=== PATIENT | male | born 1945 | race Asian ===

== ENCOUNTER 2017-05-11 10:14 | Emergency (ER) | payer BC, OTHER ==
[2017-05-11 10:20] VITALS: TEMP 98.5; BMI 27.9
[2017-05-11] MEDS ORDERED: methylPREDNISolone NA SUCC 125 MG/2 ML VIAL IVPB ONE (10:38)
[2017-05-11] MEDS ORDERED: ALBUTEROL SO4 2.5/IPRATROPIUM 0.5 INH SOL 3 ML VIAL.NEB. NEB ONE ×2 (10:38→10:52)
[2017-05-11 10:55] LABS: BASOPHIL 0.7 % (0-2.0); EOSINOPHIL 6.8 % (0-4.5); MCH 30.4 pg (25.7-33.7); MCHC 33.7 g/dl (32.0-35.9); MEAN CELL VOLUME 90.1 fl (80-96); MEAN PLT VOLUME 7.2 fl (7.5-11.1); NEUTROPHILS 41.7 % (42.8-82.8); PLATELET COUNT 216 K/MM3 (134-434); WHITE BLOOD COUNT 7.7 K/mm3 (4.0-10.0)
--- NOTE | 2017-05-11 11:05 | PDOC ---
History of Present Illness - General Chief Complaint: Shortness of Breath Stated Complaint: SOB Time Seen by Provider: 05/11/17 10:24 History Source: Patient Exam Limitations: No Limitations - History of Present Illness Initial Comments: 05/11/17 10:54 71-year-old male brought in by daughter for evaluation of cough, wheezing, and mild lower extremity swelling. Patient symptoms began about a week ago and now have progressively worsened causing him increasing coughing and sputum. Patient denies fever presently, chest pain, abdominal pain, nausea, weakness, headache, or dizziness. Patient does have history of hypertension and dyslipidemia. Patient is followed by Dr. Villar was not seen him since onset of symptoms. Patient does state a [address] trip to [place] a few days prior but states symptoms began prior to travel. Patient denies smoking history, recent sick contacts, recent change in medication, recent change in weight, or recent illness. Timing/Duration: reports: getting worse Severity: reports: moderate Possible Cause: Yes: no prior episodes Associated Symptoms: reports: cough, sore throat, wheezing Past History - Past Medical History Allergies/Adverse Reactions: Allergies Allergy/AdvReac Type Severity Reaction Status Date / Time No Known Allergies Allergy Unverified 05/11/17 10:16 Home Medications: Ambulatory Orders Losartan Potassium [Cozaar -] 25 mg PO DAILY 05/11/17 Metoprolol Succinate [Toprol Xl -] 25 mg PO DAILY 05/11/17 HTN: Yes Hypercholesterolemia: Yes - Psycho/Social/Smoking Cessation Hx Anxiety: No Suicidal Ideation: No Smoking Status: No Smoking History: Never smoked Have you smoked in the past 12 months: No Number of Cigarettes Smoked Daily: 0 Cigars Per Day: 0 Information on smoking cessation initiated: No Hx Alcohol Use: No Drug/Substance Use Hx: No Substance Use Type: None Patient Lives Alone: No Lives with/in: spouse/SO Review of Systems - Review of Systems Able to Perform ROS?: Yes Constitutional: No: Symptoms Reported HEENTM: Yes: Throat Pain. No: Throat Swelling, Difficulty Swallowing Respiratory: Yes: Cough, Wheezing, Productive cough Cardiac (ROS): Yes: Edema (lower extremity) ABD/GI: No: Symptoms Reported : No: Symptoms Reported Musculoskeletal: No: Symptoms Reported Neurological: No: Symptoms reported Endocrine: No: Symptoms Reported Hematologic/Lymphatic: No: Symptoms Reported *Physical Exam - Vital Signs Last Vital Signs Temp Pulse Resp BP Pulse Ox 98.5 F 83 18 149/91 100 05/11/17 10:18 05/11/17 10:18 05/11/17 10:18 05/11/17 10:18 05/11/17 10:18 - Physical Exam General Appearance: Yes: Nourished, Appropriately Dressed. No: Apparent Distress HEENT: positive: EOMI, VITALIY, Pharynx Normal. negative: Pale Conjunctivae Neck: positive: Supple Respiratory/Chest: positive: Decreased Breath Sounds (left lower base), Rhonchi ( left lower base), Wheezing (expiratory right lower base). negative: Labored Respiration, Rapid RR, Crackles Cardiovascular: positive: Regular Rhythm, Regular Rate. negative: Murmur Gastrointestinal/Abdominal: positive: Normal Bowel Sounds, Soft, Distended Extremity: positive: Normal Capillary Refill, Pedal Edema (1+pitting bilateral) Integumentary: positive: Normal Color, Warm, Moist Neurologic: positive: Motor Strength 5/5 (ambulatory) ED Treatment Course - LABORATORY CBC & Chemistry Diagram: 05/11/17 10:41 05/11/17 10:41 - RADIOLOGY Radiology Studies Ordered: Category Date Time Status CHEST PA & LAT [RAD] Stat Radiology 05/11/17 10:38 Ordered Medical Decision Making - Medical Decision Making 05/11/17 10:58 Patient brought in for evaluation of worsening cough wheezing and sore throat. Patient with history of dyslipidemia and hypertension. Patient on exam had expiratory wheeze to the right lower base and decreased breath sounds the left lower base. As closed patient also did travel from [place] 3 weeks ago. Patient concerning for pneumonia, CHF, bronchitis, or PE. Patient ordered for EKG, chest x-ray, labs including cardiac profile, BNP, and a d-dimer. Patient also ordered for Solu-Medrol and DuoNeb 05/11/17 12:10 Laboratory Tests 05/11/17 05/11/17 05/11/17 10:41 10:41 11:00 WBC 7.7 Hgb 13.9 Hct 41.2 Plt Count 216 Neutrophils % 41.7 L D-Dimer Pending Sodium 138 Potassium 4.1 Chloride 104 Carbon Dioxide 25 Anion Gap 9 BUN 12 Creatinine 1.0 Random Glucose 97 Calcium 8.6 Total Bilirubin 0.3 AST 30 ALT 49 Alkaline Phosphatase 98 Creatine Kinase 324 H CK-MB (CK-2) 2.828 Troponin I < 0.02 B-Natriuretic Peptide 139.89 H 05/11/17 12:11 Chest x-ray negative for acute findings. D-dimer pending. Patient states feeling better after receiving the medication. If d-dimer is negative the plan is to discharge home with albuterol inhaler and azithromycin. 05/11/17 12:42 Laboratory Tests 05/11/17 05/11/17 11:00 12:20 D-Dimer 259 H POC VBG pO2 57.5 H Pt ordered for chest CTA 05/11/17 14:59 CTA shows masslike consolidation within the right lower lobe which may represent an acute pneumonia. A poorly defined mass cannot be excluded. Clinical correlation follow-up is recommended. Patient states feeling much better. Reexam no wheezing. Patient be discharged home with azithromycin and inhaler. I 05/11/17 15:04 *DC/Admit/Observation/Transfer Diagnosis at time of Disposition: Acute wheezy bronchitis Pneumonia Qualifiers: Pneumonia type: due to unspecified organism Laterality: right Lung location: lower lobe of lung Qualified Code(s): J18.1 - Lobar pneumonia, unspecified organism - Discharge Dispostion Disposition: HOME Condition at time of disposition: Improved - Referrals Referrals: Rachel Villar MD [Primary Care Provider] - - Patient Instructions Printed Discharge Instructions: DI for Acute Bronchitis Additional Instructions: Please take antibiotics until completed. Please use your inhaler as needed for coughing and wheezing. If no improvement over the next 3-4 days please contact your primary care physician Dr. Villar.
[2017-05-11 11:22] LABS: ALBUMIN 3.4 g/dl (3.4-5.0); ANION GAP 9 (8-16); BILIRUBIN,TOTAL 0.3 mg/dL (0.2-1.0); CALCIUM 8.6 mg/dL (8.5-10.1); CO2 25 mmol/L (21-32); GLUCOSE,RANDOM 97 mg/dL (74-106); SGOT/AST 30 U/L (15-37); SGPT/ALT 49 U/L (12-78); TOT PROT 7.5 g/dl (6.4-8.2)
[2017-05-11 11:24] LABS: ALK PHOS 98 U/L (45-117); TROPONIN I < 0.02 ng/ml (0.00-0.05)
[2017-05-11 12:36] LABS: VENOUS PH 7.38 (7.32-7.42)
[2017-05-11 12:37] LABS: VENOUS BLOOD GAS HCO3 22.2 meq/L (19-25)
[2017-05-11] MEDS ORDERED: SODIUM CHLORIDE 500 ML IV STA (12:44)
[2017-05-11 15:19] VITALS: BP 145/89; PULSE 90
--- NOTE | 2017-05-12 10:41 | EKG ---
Test Reason : Blood Pressure : / mmHG Vent. 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
== END 2017-05-11 15:19 | disposition home or self-care (01) ==
LOC: JER 10:14
PROC: 3E0F7GC Introduction of Other Therapeutic Substance into Respiratory Tract, Via Natural or Artificial Opening (ICD-10-PCS; principal; 2017-05-11)
PROC: 3E0337Z Introduction of Electrolytic and Water Balance Substance into Peripheral Vein, Percutaneous Approach (ICD-10-PCS; 2017-05-11)
PROC: 3E0333Z Introduction of Anti-inflammatory into Peripheral Vein, Percutaneous Approach (ICD-10-PCS; 2017-05-11)
DX: J20.9 Acute bronchitis, unspecified (principal); J18.1 Lobar pneumonia, unspecified organism
CPT/HCPCS: 36415; 71020-TC; 71275-TC; 80053; 82550; 82553; 82803; 83880; 84484; 85025; 85379; 93005; 93010; 94640; 96361; 96374; 99282-25

== ENCOUNTER 2020-08-14 15:05 | Emergency (ER) | payer OTHER ==
--- OUTSIDE RECORDS SUMMARY | 2020-08-14 15:08 | XMS ---
:1945 Author Organization [facility] Support Name Relationship Address Phone RE Unavailable Unavailable Unavailable TAYLOR DAUGHTER [address] [place] [address] [address] [place] [address] Re-disclosure Warning The records that you are about to access may contain information from federally- assisted alcohol or drug abuse programs. If such information is present, then the following federally mandated warning applies: This information has been disclosed to you from records protected by federal confidentiality rules (42 CFR part 2). The federal rules prohibit you from making any further disclosure of this information unless further disclosure is expressly permitted by the written consent of the person to whom it pertains or as otherwise permitted by 42 CFR part 2. A general authorization for the release of medical or other information is NOT sufficient for this purpose. The Federal rules restrict any use of the information to criminally investigate or prosecute any alcohol or drug abuse patient.The records that you are about to access may contain highly sensitive health information, the redisclosure of which is protected by Article 27-F of the [facility] Public Health law. If you continue you may haveaccess to information: Regarding HIV / AIDS; Provided by facilities licensed or operated by the [facility] Office of Mental Health; or Provided by the [facility] Office for People With Developmental Disabilities. If such information is present, then the following [facility] mandated warning applies: This information has been disclosed to you from confidential records which are protected by state law. State law prohibits you from making any further disclosure of this information without the specific written consent of the person to whom it pertains, or as otherwise permitted by law. Any unauthorized further disclosure in violation of state law may result in a fine or custodial sentence or both. A general authorization for the release of medical or other information is NOT sufficient authorization for further disclosure. Insurance Providers Payer name Policy type Policy ID Covered Covered green party's Policy P edmar / Coverage green party ID relationship to [employer] ormation type huizar [employer] PPO [id number] SP [id number] 2 MEDICARE [id number] SP [id number] 13 3 Results ID Date Data Source [id number] 08/11/2020 10:41:00 AM EDT [facility] Received: 08/11/2020 at 06:15:00 QTE : [facility], [address], [place], [address], Petey Gray MD Received: 08/11/2020 at 06:15:00 QTE : [facility], [address], [place], [address], Petey Gray MD Received: 08/11/2020 at 06:15:00 QTE : [facility], [address], [place], [address], Petey Gray MD Received: 08/11/2020 at 06:15:00 QTE : [facility], [address], [place], [address], Petey Gray MD Received: 08/11/2020 at 06:15:00 QTE : [facility], [address], [place], [address], Petey Gray MD Received: 08/11/2020 at 06:15:00 QTE : [facility], [address], [place], [address], Petey Gray MD Name Value Range Interpretation Description Data Sup porting Code Source(s) Document(s ) Cholesterol 208 <200 Above high [facility] [Mass/volume] mg/dL normal Diagnostics in Serum or Plasma Cholesterol in 50 mg/dL > OR = Normal (applies [facility] HDL 40 to non-numeric Diagnostics [Mass/volume] results) in Serum or Plasma Triglyceride 82 mg/dL <150 Normal (applies [facility] [Mass/volume] to non-numeric Diagnostics in Serum or results) Plasma Cholesterol in 140 Above high [facility] LDL mg/dL normal Diagnostics [Mass/volume] (calc) in Serum or Plasma by calculation Reference range: <100Desirable range <10 0 mg/dL for primary prevention;<70 mg/dL for patients with CHD or diabetic patientswi th > or = 2 CHD risk factors.LDL-C is now calculated using the GunnerShawn lation, which is a validated novel method providingbetter accuracy than the Friede braulio equation in theestimation of LDL-C.Gunner CEBALLOS et al. KEVEN. 2013;310(19 ): 8686-4903(http://education.[employer].com/faq/UMQ207) Cholesterol.total/Cholesterol in 4.2 (calc) <5.0 Normal (applies [facility] HDL [Mass Ratio] in Serum or to non-numeric Diagnostics Plasma results) Cholesterol non HDL [Mass/volume] 158 mg/dL <130 Above high [facility] in Serum or Plasma (calc) normal Diagnostics For patients with diabetes plus 1 major ASCVD riskfactor, treating to a non-HDL-C goal of <100 mg/dL(LDL-C of <70 mg/dL) i s considered a therapeuticoption. ID Date Data Source [id number] 08/11/2020 10:41:00 AM EDT [facility] Received: 08/11/2020 at 06:15:00 QTE : [place], [address]Petey MD Received: 08/11/2020 at 06:15:00 QTE : [place], [address]Petey MD Received: 08/11/2020 at 06:15:00 QTE : [place], [address]Petey MD Received: 08/11/2020 at 06:15:00 QTE : [place], [address]Petey MD Received: 08/11/2020 at 06:15:00 QTE : [place], [address]Petey MD Received: 08/11/2020 at 06:15:00 QTE : [facility], [place], [address], Petey Gray MD Name Value Range Interpretation Description Data Sup porting Code Source(s) Document(s ) Thyrotropin 3.52 0.40-4.5 Normal (applies [facility] [Units/volume] mIU/L 0 to non-numeric Diagnostic s in Serum or results) Plasma Thyroxine (T4) 1.0 0.8-1.8 Normal (applies [facility] free ng/dL to non-numeric Diagnostics [Mass/volume] results) in Serum or Plasma ID Date Data Source [id number] 08/11/2020 10:41:00 AM EDT [facility] Received: 08/11/2020 at 06:15:00 QTE : [facility], [place], [address], Petey Gray MD Received: 08/11/2020 at 06:15:00 QTE : [facility], [place], [address], Petey Gray MD Received: 08/11/2020 at 06:15:00 QTE : [facility], [place], [address], Petey Gray MD Received: 08/11/2020 at 06:15:00 QTE : [facility], [address] [place] [place], [address], Petey Gray MD Received: 08/11/2020 at 06:15:00 QTE : [facility], [place], [address], Petey Gray MD Received: 08/11/2020 at 06:15:00 QTE : [facility], [place], [address], Petey Gray MD Name Value Range Interpretation Description Data Source(s ) Supporting Code Document(s ) Glucose 114 mg/dL 65-99 Above high normal [facility] [Mass/volum Diagnostics e] in Serum or Plasma Fasting reference intervalFor someone without known diabetes, a glucose valuebetween 100 and 125 mg/dL is consis tent withprediabetes and should be confirmed with afollow-up test. Urea nitrogen 25 mg/dL 7-25 Normal (applies to [facility] D iagn[facility] [Mass/volume] in Serum non-numeric results) or Plasma Creatinine 1.00 mg/dL 0.70-1.18 Normal (applies to [facility] [Mass/volume] in Serum non-numeric results) or Plasma For patients >49 years of age, the refer ence limitfor Creatinine is approximately 13% higher for peopleidentified as -A merican. Glomerular filtration 74 mL/min/1.73m2 > OR = Normal (applies [facility] rate/1.73 sq 60 to non-numeric Diagnostics M.predicted [Volume results) Rate/Area] in Serum, Plasma or Blood by Creatinine-based formula (MDRD) Glomerular filtration 86 mL/min/1.73m2 > OR = Normal (applies [facility] rate/1.73 sq M 60 to non-numeric Diagnostic s predicted among blacks results) [Volume Rate/Area] in Serum or Plasma by Creatinine-based formula (MDRD) Urea NOT APPLICABLE 6-22 [facility] nitrogen/Creatinine (calc) Diagnostic s [Mass Ratio] in Serum or Plasma Sodium [Moles/volume] 138 mmol/L 135-146 Normal (applies Q uest in Serum or Plasma to non-numeric Diagno stics results) Potassium 4.3 mmol/L 3.5-5.3 Normal (applies [facility] [Moles/volume] in to non-numeric Diagnos tics Serum or Plasma results) Chloride 104 mmol/L 98-110 Normal (applies [facility] [Moles/volume] in to non-numeric Diagnos tics Serum or Plasma results) Carbon dioxide, total 26 mmol/L 20-32 Normal (applies Qu est [Moles/volume] in to non-numeric Diagnos tics Serum or Plasma results) Calcium [Mass/volume] 9.4 mg/dL 8.6-10.3 Normal (applies Qu est in Serum or Plasma to non-numeric Diagno stics results) Protein [Mass/volume] 7.6 g/dL 6.1-8.1 Normal (applies Qu est in Serum or Plasma to non-numeric Diagno stics results) Albumin [Mass/volume] 4.1 g/dL 3.6-5.1 Normal (applies Qu est in Serum or Plasma to non-numeric Diagno stics results) Globulin [Mass/volume] 3.5 g/dL (calc) 1.9-3.7 Normal (applies [facility] in Serum by to non-numeric Diagnostics calculation results) Albumin/Globulin [Mass 1.2 (calc) 1.0-2.5 Normal (applies [facility] Ratio] in Serum or to non-numeric Diagno stics Plasma results) Bilirubin.total 0.8 mg/dL 0.2-1.2 Normal (applies [facility] [Mass/volume] in Serum to non-numeric Di agnostics or Plasma results) Alkaline phosphatase 64 U/L 35-144 Normal (applies Que st [Enzymatic to non-numeric Diagnostics activity/volume] in results) Serum or Plasma Aspartate 26 U/L 10-35 Normal (applies [facility] aminotransferase to non-numeric Diagnost ics [Enzymatic results) activity/volume] in Serum or Plasma Alanine 31 U/L 9-46 Normal (applies [facility] aminotransferase to non-numeric Diagnost ics [Enzymatic results) activity/volume] in Serum or Plasma ID Date Data Source [id number] 08/11/2020 10:41:00 AM EDT [facility] Received: 08/11/2020 at 06:15:00 QTE : [facility] [place], [address], Petey Gray MD Received: 08/11/2020 at 06:15:00 QTE : [place], [address]Petey MD Received: 08/11/2020 at 06:15:00 QTE : [facility] [place], [address]Petey MD Received: 08/11/2020 at 06:15:00 QTE : [place], [address]Petey MD Received: 08/11/2020 at 06:15:00 QTE : [place], [address], Petey Gray MD Received: 08/11/2020 at 06:15:00 QTE : [facility], [address], [place], [address], Petey Gray MD Name Value Range Interpretation Description Data Sup porting Code Source(s) Document(s ) Leukocytes 5.8 3.8-10. Normal (applies [facility] [#/volume] in Thousand 8 to non-numeric Diagnostics Blood by /uL results) Automated count Erythrocytes 4.52 4.20-5. Normal (applies [facility] [#/volume] in Million/ 80 to non-numeric Diagnostics Blood by uL results) Automated count Hemoglobin 14.5 13.2-17 Normal (applies [facility] [Mass/volume] in g/dL .1 to non-numeric Diagnost ics Blood results) Hematocrit 41.6 % 38.5-50 Normal (applies [facility] [Volume .0 to non-numeric Diagnostics Fraction] of results) Blood by Automated count Erythrocyte mean 92.0 fL 80.0-10 Normal (applies [facility] corpuscular 0.0 to non-numeric Diagnostics volume [Entitic results) volume] by Automated count Erythrocyte mean 32.1 pg 27.0-33 Normal (applies [facility] corpuscular .0 to non-numeric Diagnostics hemoglobin results) [Entitic mass] by Automated count Erythrocyte mean 34.9 32.0-36 Normal (applies [facility] corpuscular g/dL .0 to non-numeric Diagnostics hemoglobin results) concentration [Mass/volume] by Automated count Erythrocyte 12.5 % 11.0-15 Normal (applies [facility] distribution .0 to non-numeric Diagnostics width [Ratio] by results) Automated count Platelets 209 140-400 Normal (applies [facility] [#/volume] in Thousand to non-numeric Diagnostics Blood by /uL results) Automated count Platelet mean 10.4 fL 7.5-12. Normal (applies [facility] volume [Entitic 5 to non-numeric Diagnosti cs volume] in Blood results) by Marcial Neutrophils 2239 1500-78 Normal (applies [facility] [#/volume] in cells/uL 00 to non-numeric Diagnostics Blood by results) Automated count Lymphocytes 2535 850-390 Normal (applies [facility] [#/volume] in cells/uL 0 to non-numeric Diagnostics Blood by results) Automated count Monocytes 783 200-950 Normal (applies [facility] [#/volume] in cells/uL to non-numeric Diagnostics Blood by results) Automated count Eosinophils 203 15-500 Normal (applies [facility] [#/volume] in cells/uL to non-numeric Diagnostics Blood by results) Automated count Basophils 41 0-200 Normal (applies [facility] [#/volume] in cells/uL to non-numeric Diagnostics Blood by results) Automated count Neutrophils/100 38.6 % 38-80 Normal (applies [facility] leukocytes in to non-numeric Diagnostics Blood by results) Automated count Lymphocytes/100 43.7 % 15-49 Normal (applies [facility] leukocytes in to non-numeric Diagnostics Blood by results) Automated count Monocytes/100 13.5 % 0-13 Above high [facility] leukocytes in normal Diagnostics Blood by Automated count Eosinophils/100 3.5 % 0-8 Normal (applies [facility] leukocytes in to non-numeric Diagnostics Blood by results) Automated count Basophils/100 0.7 % 0-2 Normal (applies [facility] leukocytes in to non-numeric Diagnostics Blood by results) Automated count ID Date Data Source [id number] 08/11/2020 10:41:00 AM EDT [facility] Received: 08/11/2020 at 06:15:00 QTE : [facility], [place], [address], Petey Gray MD Received: 08/11/2020 at 06:15:00 QTE : [facility], [address] [place], [address], Petey Gray MD Received: 08/11/2020 at 06:15:00 QTE : [facility] [place], [address], Petey Gray MD Received: 08/11/2020 at 06:15:00 QTE : [facility], [address] [place], [address], Petey Gray MD Received: 08/11/2020 at 06:15:00 QTE : [facility], [address], Petey Gray MD Received: 08/11/2020 at 06:15:00 QTE : [facility], [address], Petey Gray MD Name Value Range Interpretation Description Data Source(s ) Supporting Code Document(s ) Prostate 0.4 < OR = Normal (applies [facility] specific Ag ng/mL 4.0 to non-numeric Diagnostics [Mass/volume results) ] in Serum or Plasma The total PSA value from this assay syst em isstandardized against the WHO standard. The testresult will be approximately 20% lower when comparedto the equimolar-standardized total PSA (Beckma nCoulter). Comparison of serial PSA results should beinterpreted with this fact in m ind.This test was performed using the Siemenschemiluminescent method. Values o btained fromdifferent assay methods cannot be usedinterchangeably. PSA levels, regardl ess ofvalue, should not be interpreted as absoluteevidence of the presence or abse nce of disease. ID Date Data Source [id number] 08/11/2020 10:41:00 AM EDT [facility] Received: 08/11/2020 at 06:15:00 QTE : [facility] [place], [address], Petey Gray MD Received: 08/11/2020 at 06:15:00 QTE : [facility] [place], [address], Petey Gray MD Received: 08/11/2020 at 06:15:00 QTE : [facility] [place], [address]Petey MD Received: 08/11/2020 at 06:15:00 QTE : [facility], [address]Petey MD Received: 08/11/2020 at 06:15:00 QTE : [facility] [place], [address]Petey MD Received: 08/11/2020 at 06:15:00 QTE : [facility] [place], [address]Petey MD Name Value Range Interpretation Description Data Source(s ) Supporting Code Document(s ) Hemoglobin 6.0 % of <5.7 Above high normal [facility] A1c/Hemoglobin total Diagnostics .total in Hgb Blood For someone without known diabetes, a he [id number] value between 5.7% and 6.4% is consistent withprediabetes and should be confirmed with afollow-up test.For someone with known diabetes, a value <7%indicate s that their diabetes is well controlled. [id number] should be individualized base d on duration ofdiabetes, age, comorbid conditions, and otherconsiderations.This assay result is consistent with an increased riskof diabetes.Currently, no consensus exists regarding use ofhemoglobin A1c for diagnosis of diabetes for children. ID Date Data Source [id number] 04/19/2020 12:00:00 AM EDT [facility] Name Value Range Interpretation Code Description Data Ester rce(s) Supporting Document(s ) SARS-COV-2 [facility] RNA RESP Diagnostics QL KIMBERLY+PROBE This lab was ordered by [facility] [place] and reported by [facility]. Procedure
--- NOTE | 2020-08-14 15:36 | TELE ---
HPI Do you have fever,cough or shortness of breath?: No - General Reason For Visit: COVID 19 TEST Time Seen by Provider: 08/14/20 15:34 History Source: Patient Exam Limitations: No Limitations - History of Present Illness 08/14/20 15:34 [id number] male past medical history of hypertension who made telehealth visit for COVID-19 testing. Patient states his grandson tested positive for COVID-19 last week and is subsequently retested negative. He is concerned that he was around the child wants testing even though he is currently asymptomatic. CONSTITUTIONAL: Absent: fever, chills, diaphoresis, generalized weakness, malaise, loss of appetite HEENT: Absent: rhinorrhea, nasal congestion, throat pain, throat swelling, difficulty swallowing, mouth swelling, ear pain, eye pain, visual changes CARDIOVASCULAR: Absent: chest pain, loss of consciousness, palpitations, irregular heart rate, peripheral edema RESPIRATORY: Absent: cough, shortness of breath, dyspnea with exertion, orthopnea, wheezing, stridor, hemoptysis GASTROINTESTINAL: Absent: abdominal pain, abdominal distension, nausea, vomiting, diarrhea SKIN: Absent: rash, itching, pallor NEUROLOGIC: Absent: headache, focal weakness or paresthesias, dizziness, unsteady gait, seizure, mental status changes, bladder or bowel incontinence PSYCHIATRIC: Absent: anxiety, depression, suicidal or homicidal ideation, hallucinations. GENERAL: Well developed, well nourished. Awake and alert. No acute distress. HEENT: Normocephalic, atraumatic. PERRLA, EOMI. NECK: Supple. Full ROM. PULMONARY: No evidence of respiratory distress. EXTREMITIES: No cyanosis. SKIN: Warm and dry. Normal capillary refill. No rashes. No jaundice. NEUROLOGICAL: Alert, awake, appropriate. PSYCHIATRIC: Cooperative. Good eye contact. Appropriate mood and affect. Past History - Medical History Allergies/Adverse Reactions: Allergies Allergy/AdvReac Type Severity Reaction Status Date / Time No Known Allergies Allergy Unverified 05/11/17 10:16 Home Medications: Ambulatory Orders Albuterol Sulfate Inhaler - [Ventolin HFA Inhaler -] 1 - 2 inh PO QID PRN #1 inh aler 05/11/17 Azithromycin [Zithromax 250mg Tablets -] 250 mg PO UTDICT #6 tab 07/09/17 Losartan Potassium [Cozaar -] 25 mg PO DAILY 05/11/17 Metoprolol Succinate [Toprol Xl -] 25 mg PO DAILY 05/11/17 HTN: Yes Hypercholesterolemia: Yes - Psycho-Social/Smoking History Smoking Status: No Smoking History: Never smoked Have you smoked in the past 12 months: No Number of Cigarettes Smoked Daily: 0 Cigars Per Day: 0 - Medical Decision Making 08/14/20 15:35 A/P: 74-year-old male for telehealth visit for COVID-19 testing Asymptomatic COVID-19 testing Discharge Portions of this note have been documented using voice recognition software. As a result, errors may occur in the salesperson burial needs process. Effort has been made to correct all grammatical and salesperson burial needs error, but some may have been missed which may produce sporadic inaccurate salesperson burial needs or nonsensical phrases. Discharge Diagnosis at time of Disposition: Counseled about COVID-19 virus infection - Referrals Follow-up Referral(s): Dillon Ayala [Primary Care Provider] - - Patient Instructions Additional Discharge Instructions: You were tested for COVID today. Please isolate yourself until your test results come back. Guidance has been provided in your discharge papers You should receive a call within 24 to 48 hours from our department with your results. Thank you for using our telehealth service today! - Discharge Disposition: HOME Condition at time of Disposition: Stable
== END 2020-08-14 15:36 | disposition home or self-care (01) ==
LOC: JVIRT 15:05
DX: Z03.818 Encounter for observation for suspected exposure to other biological agents ruled out (principal)
CPT/HCPCS: C9803; Q3014-GT; U0003

== ENCOUNTER 2021-06-19 17:23 | Emergency (ER) | payer OTHER ==
[2021-06-19 17:33] VITALS: BP 113/60; PULSE 94; TEMP 98.4; BMI 30.9
[2021-06-19] MEDS ORDERED: DIPHTH,PERTUSS(ACELL),TET 0.5 ML DISP.SYRIN IM ONE ×2 (17:51→19:14)
[2021-06-19] MEDS ORDERED: CEPHALEXIN MONOHYDRATE 500 MG CAPSULE (UD) PO ONE (19:06)
[2021-06-19] MEDS ORDERED: IBUPROFEN 600 MG TABLET (FP) PO ONE ×2 (19:06→19:13)
[2021-06-19] MEDS ORDERED: CEPHALEXIN MONOHYDRATE 500 MG CAPSULE (UD) ONE (19:13)
== END 2021-06-19 19:21 | disposition home or self-care (01) ==
LOC: JERFT 17:23
PROC: 0HQGXZZ Repair Left Hand Skin, External Approach (ICD-10-PCS; principal; 2021-06-19)
PROC: 3E0234Z Introduction of Serum, Toxoid and Vaccine into Muscle, Percutaneous Approach (ICD-10-PCS; principal; 2021-06-19)
DX: S62.663B Nondisplaced fracture of distal phalanx of left middle finger, initial encounter for open fracture (principal); S61.211A Laceration without foreign body of left index finger without damage to nail, initial encounter; W31.2XXA Contact with powered woodworking and forming machines, initial encounter
CPT/HCPCS: 12002; 73140-TC-LT-FY; 90471; 90715; 99283-25

== ENCOUNTER 2022-04-29 15:30 | Emergency (ER) | payer OTHER ==
[2022-04-29 16:10] VITALS: BP 125/75; PULSE 87; TEMP 100.1; BMI 29.0
[2022-04-29] MEDS ORDERED: BEBTELOVIMAB (EUA) 175 MG/2 ML VIAL IVPUSH ONE (16:17)
== END 2022-04-29 18:45 | disposition home or self-care (01) ==
LOC: JER 15:30
PROC: 3E033GC Introduction of Other Therapeutic Substance into Peripheral Vein, Percutaneous Approach (ICD-10-PCS; principal; 2022-04-29)
DX: U07.1 COVID-19 (principal)
CPT/HCPCS: 96374; 99284-25; M0222; Q0222

== ENCOUNTER 2024-04-14 04:16 | Day surgery (SDC) | payer OTHER ==
[2024-04-12 09:01] VITALS: BMI 29.6
[2024-04-14] MEDS: TRYPAN BLUE 0.5 ML DISP.SYRIN IO ONE
[~2024-04-14 04:16] MED LIST: ACETAMINOPHEN 325 MG TABLET (FP) PO PRN
[2024-04-14] MEDS ORDERED: PHENYLEPHRINE 2.5% OPTHALMIC DROP 2ML BOTTLE ONE (07:10)
[2024-04-14] MEDS ORDERED: TROPICAMIDE 1% OPHTH SOLN 15 ML BOTTLE ONE (07:10)
[2024-04-14] MEDS ORDERED: CYCLOPENTOLATE HCL 1% OPHTH SOLN 2 ML BOTTLE ONE (07:10)
[2024-04-14] MEDS ORDERED: KETOROLAC TROMETHAMINE 0.5% EYE DROP 1 DROP DROPS ONE (07:10)
[2024-04-14] MEDS ORDERED: OFLOXACIN 0.3% OPHTHALMIC SOLUTION 5 ML BOTTLE ONE (07:10)
[2024-04-14] MEDS ORDERED: LIDOCAINE HCL/PF 1% SDV 5ML VIAL ONE (07:34)
[2024-04-14 07:35] VITALS: RESP 16; TEMP 98.2
[2024-04-14] MEDS ORDERED: TETRACAINE 0.5% OPHTH SOLN 2 ML BOTTLE ONE (07:35)
[2024-04-14] MEDS ORDERED: POVIDONE-IODINE 5% OPHTHALMIC PREP 30 ML SOLUTION ONE (07:35)
[2024-04-14] MEDS ORDERED: PHENYLEPHRINE/KETOROLAC 4 ML VIAL IO ONE (07:35)
[2024-04-14] MEDS ORDERED: BSS (NA/CA/MG/K) BALANCED SALT SOLUTION OPHTH SOLN 15 ML BOTTLE ONE (07:35)
[2024-04-14] MEDS: CYCLOPENTOLATE HCL 1% OPHTH SOLN 2 ML BOTTLE OP SCH (07:46)
[2024-04-14] MEDS: KETOROLAC TROMETHAMINE 0.5% EYE DROP 1 DROP DROPS OP SCH (07:47)
[2024-04-14] MEDS: OFLOXACIN 0.3% OPHTHALMIC SOLUTION 5 ML BOTTLE OP SCH (07:48)
[2024-04-14] MEDS: TROPICAMIDE 1% OPHTH SOLN 15 ML BOTTLE OP SCH (07:49)
[2024-04-14] MEDS: PHENYLEPHRINE 2.5% OPHTH SOLN 15 ML BOTTLE OP SCH (07:49)
[2024-04-14] MEDS ORDERED: ONDANSETRON 4 MG/2 ML VIAL ONE (08:18)
[2024-04-14] MEDS ORDERED: MIDAZOLAM HCL 2 MG/2 ML SINGLE DOSE VIAL ONE (08:18)
[2024-04-14] MEDS: TETRACAINE 0.5% OPHTH SOLN 2 ML BOTTLE OD ONE ×2 (09:02)
[2024-04-14] MEDS: POVIDONE-IODINE 5% OPHTHALMIC PREP 30 ML SOLUTION OD ONE ×2 (09:03)
[2024-04-14] MEDS: LIDOCAINE HCL 1% PRESERVATIVE FREE - 30ML VIAL IO ONE ×2 (09:11)
[2024-04-14] MEDS: BSS (NA/CA/MG/K) BALANCED SALT SOLUTION OPHTH SOLN 15 ML BOTTLE OD ONE ×2 (09:13)
[2024-04-14] MEDS ORDERED: FENTANYL CITRATE/PF 50 MCG/ML VIAL ONE (09:15)
[2024-04-14] MEDS: CHONDROITIN SU A/HYALUR SOD 1 KIT IO ONE ×2 (09:15)
[2024-04-14] MEDS: PHENYLEPHRINE/KETOROLAC 4 ML VIAL IO ONE ×2 (09:20)
[2024-04-14 12:17] VITALS: BP 143/82; PULSE 60
== END 2024-04-14 11:30 | disposition home or self-care (01) ==
LOC: JASU-SURG 04:16
PROVIDERS: ATTEND Ophthalmology
PROC: 08RJ3JZ Replacement of Right Lens with Synthetic Substitute, Percutaneous Approach (ICD-10-PCS; principal; 2024-04-14 09:00)
DX: H26.9 Unspecified cataract (principal)
CPT/HCPCS: J1097; V2632